=== PATIENT | male | born 1995 | race Caucasian/White ===

== ENCOUNTER 2018-05-01 13:04 | Emergency (ER) | payer BC ==
[2018-05-01 13:07] VITALS: BP 117/69
--- NOTE | 2018-05-01 13:32 | EDPHY ---
General Time Seen by Provider: 05/01/18 13:11 Narrative: CHIEF COMPLAINT: Head injury, laceration HISTORY OF PRESENT ILLNESS: Patient presents with complaints of fall with head injury last night. States that he was drinking with friends when he fell, striking his face on some rocks. No loss of consciousness but he did sustain a laceration to the left cheek. He says that as he has progressed he has felt some cloudy thought, difficulty focusing. He has minimal discomfort over the laceration and no headache. No neck pain. No vomiting. No visual disturbance. No motor sensory complaints distally. No other associated complaints or modifying factors. Tetanus up-to-date less than 10 years ago. REVIEW OF SYSTEMS: 10 systems were reviewed and negative with the exception of the elements mentioned in the history of present illness. PCP: [facility] SPECIALISTS: None PAST MEDICAL HISTORY: Previous concussions PAST SURGICAL HISTORY: No recent surgical history SOCIAL HISTORY: [employer] student. Originally from [place] FAMILY HISTORY: Noncontributory EXAMINATION: General Appearance: Alert, no distress Head: normocephalic. no combs sign. no raccoon eyes. no depression or deformity. Eyes: Pupils equal and round, no conjunctival pallor or injection. EOMs are symmetric and painless. There is no hyphema or subconjunctival hemorrhage. No periorbital erythema. ENT, Mouth: Mucous membranes moist. Normal dentition. Airway patent. Neck: Normal inspection, supple, non-tender Respiratory: Lungs are clear to auscultation Cardiovascular: Regular rate and rhythm but no murmur Back: non-tender, no bony abnormalities Neurological: GCS 15. A&O, nonfocal, normal gait. No pronator drift. Normal [id number]. Normal heel walk. Normal toe walk. Strength is symmetric in all 4 limbs. Light sensory is symmetric in the upper lower extremities. Skin: Warm and dry, no rash. There is an area of abrasion and superficial laceration to the left maxilla measuring approximately 3 cm total length. I do not appreciate any laceration that requires repair. Extremities: Nontender, no pedal edema. Symmetric range of motion. Psychiatric: Mood and affect normal DIFFERENTIAL DIAGNOSES: Including but not limited to laceration, tissue avulsion, maxilla fracture, orbital fracture, for fracture, intracranial hemorrhage, concussion MDM: 1:15 p.m. Blunt trauma to the face last evening with a normal neuro examination and negative [place] CT head rules. He does have abrasion/laceration to the left maxilla without any evidence of orbital fracture. Or injury to the globe. I do not feel he warrants CT scan of the head clinically or by [place] CT head rules. I have anesthetize the wound will irrigate this and re-examine. 1:35 p.m. Wound has been irrigated and I have re-evaluated the patient. The facial abrasion to the left side of the maxilla does not require suture repair. There is some small area of tissue avulsion. There is no deep laceration. Discussed wound care daily for this. We discussed head injury precautions for we discussed ice, rest, elevation and [id number] anti-inflammatories. Short course of pain medication provided. We discussed ED precautions and follow up with ENT. He is comfortable this plan and discharged home stable condition. SUPERVISION: Patient was independently examined, but I discussed the case with my secondary supervising physician Dr. Brink CONSULTATION: None - History Smoking Status: Former smoker - Objective Vital Signs: Initial Vital Signs Temperature (C) 98.2 F 05/01/18 13:05 Heart Rate 79 05/01/18 13:05 Respiratory Rate 16 05/01/18 13:05 Blood Pressure 117/69 05/01/18 13:05 O2 Sat (%) 95 05/01/18 13:05 O2 Delivery Mode Room Air Allergies/Adverse Reactions: No Known Allergies Allergy (Unverified 05/01/18 13:08) Home Medications: Medication Instructions Recorded oxyCODONE HCL/ACETAMINOPHEN 1 each PO Q4-6PRN PRN #5 tablet 05/01/18 [Percocet 5-325 mg Tablet] Departure - Departure Disposition: Home, Routine, Self-Care Clinical Impression: Closed head injury Qualifiers: Encounter type: initial encounter Qualified Code(s): S09.90XA - Unspecified injury of head, initial encounter Facial abrasion Qualifiers: Encounter type: initial encounter Qualified Code(s): S00.81XA - Abrasion of other part of head, initial encounter Condition: Good Instructions: Concussion (ED), Head Injury (ED), Abrasion (ED) Additional Instructions: 1. Head injury precautions as discussed 2. Daily wound care to the face as discussed 3. I provided the on-call concussion specialist from to call Wednesday for outpatient care 4. ED precautions for any headache, neck pain or stiffness, vomiting, visual disturbance Referrals: CARLOS Vargas,. [Primary Care Provider] - As per Instructions Ivette Pendleton MD [Medical Doctor] - As per Instructions Prescriptions: oxyCODONE HCL/ACETAMINOPHEN [Percocet 5-325 mg Tablet] 1 each PO Q4-6PRN PRN #5 tablet PRN Reason: Pain, Breakthrough
== END 2018-05-01 13:51 | disposition home or self-care (01) ==
DX: S09.90XA Unspecified injury of head, initial encounter (principal); S00.81XA Abrasion of other part of head, initial encounter; Z87.891 Personal history of nicotine dependence; W01.198A Fall on same level from slipping, tripping and stumbling with subsequent striking against other object, initial encounter; Y93.89 Activity, other specified; Y99.9 Unspecified external cause status; Y92.9 Unspecified place or not applicable

== ENCOUNTER 2018-10-16 13:24 | Emergency (ER) | payer OTHER ==
--- NOTE | 2018-10-16 13:51 | EDPHY ---
H & P Stated Complaint: midsternal pressure type pain, better with activity Time Seen by Provider: 10/16/18 13:50 - Personal History Current Tetanus/Diphtheria Vaccine: Unsure Current Tetanus Diphtheria and Acellular Pertussis (TDAP): Unsure - Medical/Surgical History Hx Asthma: No Hx Chronic Respiratory Disease: No Hx Diabetes: No Hx Cardiac Disease: No Hx Renal Disease: No Hx Cirrhosis: No Hx Alcoholism: No Hx HIV/AIDS: No Hx Splenectomy or Spleen Trauma: No Other PMH: ACL Surgery - Social History Smoking Status: Current every day smoker Constitutional: Initial Vital Signs Temperature (C) 36.6 C 10/16/18 13:27 Heart Rate 96 10/16/18 13:27 Respiratory Rate 16 10/16/18 13:27 Blood Pressure 108/71 10/16/18 13:27 O2 Sat (%) 97 10/16/18 13:27 O2 Delivery Mode Room Air Allergies/Adverse Reactions: No Known Allergies Allergy (Verified 10/16/18 13:30) Home Medications: Medication Instructions Recorded Ibuprofen [Motrin] 800 mg PO Q8 #20 tab 10/16/18 Medical Decision Making ED Course/Re-evaluation: CHIEF COMPLAINT: Chest pain HISTORY OF PRESENT ILLNESS: The patient is a 23 y/o male complaining of chest pain when he moves his chest. On , 4 days ago, he woke up with the chest pain which was only present when he uses his muscles to move his chest. The pain is most severe when he bends his head down towards his chest. He was able to ski without difficulty and has no shortness of breath. As the symptoms did not improve he presented to an urgent care. As he came in with chest pain, they sent the patient to the emergency department for further evaluation. No fever, headache, sore throat, heart palpitations, abdominal pain, urinary or bowel complaints, numbness, paresthesias. REVIEW OF SYSTEMS: A comprehensive 10 system review of systems is otherwise negative aside from elements mentioned in the history of present illness and medical decision making. PHYSICAL EXAM: HR, BP, O2 Sat, RR. Temp noted General Appearance: Alert, well hydrated, appropriate, and non-toxic appearing. Head: Atraumatic without scalp tenderness or obvious injury Eyes: Pupils equal, round, reactive to light and accommodation, EOMI, no trauma , no injection. Ears: Clear bilaterally, no perforation, normal landmarks Nose: Atraumatic, no rhinorrhea, clear. Throat: There is no erythema or exudates, no lesions, normal tonsils, mucus membranes moist. Neck: Supple, 2+ carotid upstroke, nontender, no lymphadenopathy. Respiratory: No retractions, no distress, no wheezes, and no accessory muscle use. Lungs are clear to auscultation bilaterally. Cardiovascular: Regular rate and rhythm, no murmurs, rubs, or gallops. Bilateral carotid, radial, dorsalis pedis, and posterior tibial pulses intact. Good capillary refill all extremities. Gastrointestinal: Abdomen is soft, nontender, non-distended, no masses, no rebound, no guarding, no peritoneal signs. Musculoskeletal: Normal active ROM of all extremities, atraumatic. Neurological: Alert, appropriate, and interactive. The patient has normal DTRs and non-focal cranial nerves, motor, sensory, and cerebellar exam. Skin: No rashes, good turgor, no nodules on palpation. Past medical history: Denies Past surgical history: ACL surgery Family history: Denies Social history: Student at , single, originally from [place] DIAGNOSTICS/PROCEDURES/CRITICAL CARE TIME: EKG: The 12 lead EKG was interpreted by myself as sinus rhythm with a rate of 87. See hard copy and/or "tracemaster" electronic copy for interpretation. DIFFERENTIAL DIAGNOSIS: The differential diagnosis for the patient's chest pain included but was not limited to myocardial ischemia, pulmonary embolus, chest wall pain, pleural inflammation, musculoskeletal pain, and pulmonary infectious causes. MEDICAL DECISION MAKING: The patient is a 23 y/o male presenting with chest pain when he moves the muscles in his chest. He has a normal cardiac exam, but does have intrinsic pain when he moves his chest muscles of tilts his head to his chest. There is no evidence of pericarditis or costochondritis. EKG ordered to rule out cardiac causes. 1344: I reviewed patient's EKG as sinus rhythm with a rate of 87. 1400: Reassessed patient and discussed EKG findings. Patient's symptoms are consistent with musculoskeletal pain. I have advised him to follow up with a PCP and take Motrin for the pain. Return precautions provided; patient is comfortable with this plan. - Data Points Medications Given: Discontinued Medications Ibuprofen (Motrin) 800 mg PO EDNOW ONE Stop: 10/16/18 13:58 Last Admin: 10/16/18 14:07 Dose: 800 mg Departure - Departure Disposition: Home, Routine, Self-Care Clinical Impression: Musculoskeletal chest pain Chest pain Qualifiers: Chest pain type: other chest pain Qualified Code(s): R07.89 - Other chest pain Condition: Good Instructions: Chest Pain (ED), Musculoskeletal Pain (ED) Additional Instructions: 1. Take Motrin as prescribed. 2. Follow-up with your primary doctor within 72 hours. 3. Return to the Emergency Department for fever, chest pain, shortness of breath , increasing pain or other worsening of condition. Referrals: [facility] [Clinic] - As per Instructions Prescriptions: Ibuprofen [Motrin] 800 mg PO Q8 #20 tab Report Scribed for: Emil Oquendo Report Scribed by: Betsy Gaona Date of Report: 10/16/18 Time of Report: 13:53
[2018-10-16] MEDS ORDERED: IBUPROFEN 800 MG TAB PO ONE (13:57)
[2018-10-16 14:13] VITALS: BP 102/69
--- NOTE | 2018-10-16 21:14 | CPEKG ---
Test Reason : OPEN Blood Pressure : / mmHG Vent. Rate : 087 BPM Atrial Rate : 087 BPM P-R Int : 139 ms QRS Dur : 090 ms QT Int : 325 ms P-R-T Axes : 040 087 058 degrees QTc Int : [address] elev, probable normal early repol pattern Confirmed by Leighton Muñoz ([id number]) on 10/16/2018 9:13:42 PM Referred By: PHYSICIAN ED Confirmed By:Leighton Muñoz
== END 2018-10-16 14:15 | disposition home or self-care (01) ==
DX: R07.89 Other chest pain (principal); F17.200 Nicotine dependence, unspecified, uncomplicated